=== PATIENT | female | born 1970 | race African-American/Black ===

== ENCOUNTER 2020-07-01 18:20 | Emergency (ER) | payer MEDICAID ==
[~2020-07-01] VITALS: Ht 170.2 cm; Wt 76.0 kg
[2020-07-01 18:22] VITALS: BP 165/98
== END 2020-07-01 21:15 | disposition left against medical advice (07) ==
LOC: ER 18:20
DX: G89.29 Other chronic pain (principal); Z53.21 Procedure and treatment not carried out due to patient leaving prior to being seen by health care provider